=== PATIENT | male | born 1970 ===

== ENCOUNTER 2016-06-06 13:45 | Day surgery (SDC) | payer OTHER ==
[~2016-06-06 13:45] MED LIST: RINGERS SOLUTION,LACTATED 1,000 ML IV PRN; ceFAZolin SODIUM 2 GM in DEXTROSE 5 % IN WATER 50 ML IV PRN
--- OUTSIDE RECORDS SUMMARY | 2016-06-06 13:50 | XMS REPORT | Continuity of Care Document ---
:1970 Author Organization [facility] ([facility]) Address [place] [address] Phone [phone] Care Team Providers Name Role Phone Provider, No-Primary Care Primary Care Provider Unavailable Source Comments This disclosure is being made pursuant to the Care Everywhere program, applicable federal and state laws, and may not contain all informaitonavailable regarding this patient.[facility] ([facility]) Active Allergies and Adverse Reactions No Known Allergies Current Medications No known medications Active Problems Problem Noted Date Elevated blood pressure (not hypertension) 02/25/2016 Epidermoid cyst 02/25/2016 Social History Tobacco Use Types Packs/Day Years Used Date Never Smoker Smokeless Tobacco: Never Used Tobacco Cessation:Counseling Given: Yes Comments: Alcohol Use Drinks/Week oz/Week Comments No Last Filed Vital Signs Vital Sign Reading Time Taken Blood Pressure 142/90 02/24/2016 3:17 PM [employer] Pulse 86 02/24/2016 3:17 PM [employer] Temperature 37 C (98.6 F) 02/24/2016 3:17 PM [employer]ORY [employer] Respiratory Rate - - Height 1.727 m (5' 8") 02/24/2016 3:17 PM [employer]ORY EXP[employer] Weight 100.1 kg (220 lb 10.9 oz) 02/24/2016 3:17 PM FA[employer]ORY EXPERT Body Mass Index 33.56 02/24/2016 3:17 PM [employer]ORY EXPERT Oxygen Saturation - - Plan of Care Health Maintenance Due Date Last Done Comments Hepatitis B Vaccine (1 of 3 - Primary Series) 1970 Tdap Vaccine 07/15/1979 Lipid Disorder Screening 1986 MMR Vaccine 1986 Td Vaccine 1986 Influenza Vaccine: Seasonal (#1) 10/26/2015 Results from Last 3 Months Not on file
--- OUTSIDE RECORDS SUMMARY | 2016-06-06 13:50 | XMS REPORT | CCD ---
:1970 Author Name MELANIE PORTILLO Address [address] [place] [address] Care Team Providers Name Role Phone BEBETO OLSON, DANNIE Dial Attending Physician Unavailable DANNIE TATE MD Er Physician 1 Unavailable Allergies Allergy Code Allergy Type Reaction Status No Known Allergies 0 Drug allergy Active Active Medications Unknown or Not Available. Problems Unknown or Not Available. Procedures Procedure Code Procedure Type Date ABD 2 VWS DECUB OR UPRIGHT [id number] SNOMED CT 08/27/2015 Results ALCOHOL - Collect Date/Time: 08/27/2015 02:40 Test Name Code Test Result Test Units Test Ref Range ALCOHOL 3.00 mg/dL COMPREHENSIVE METABOLIC PANEL - Collect Date/Time: 08/27/2015 02:40 Test Name Code Test Result Test Units Test Ref Range GLUCOSE 118 mg/dL L=74 H=106 SODIUM 138 mmol/L L=136 H=145 POTASSIUM 4.1 mmol/L L=3.5 H=5.1 CHLORIDE 103 mmol/L L=98 H=107 CO2 27 mmol/L L=21 H=32 BUN 10.0 mg/dL L=7.0 H=18.0 CREATININE 0.7 mg/dL L=0.8 H=1.3 BUN/CREAT 14.3 L=7.6 H=21.2 CALCIUM 9.0 mg/dL L=8.6 H=10.1 TOTAL BILI 0.8 mg/dL L=0.2 H=1.0 TOTAL PROTEIN 7.6 g/dL L=6.4 H=8.2 ALBUMIN 3.8 g/dL L=3.4 H=5.0 A/G RATIO 1.0 ALKALINE PHOS 82 IU/L L=50 H=136 AST/SGOT 15 IU/L L=15 H=37 ALT/SGPT 30 IU/L L=12 H=78 ANION GAP 12.0 mmol/L L=7.0 H=16.0 AGE 45 YEARS GFR 128.48 ml/min LIPASE - Collect Date/Time: 08/27/2015 02:40 Test Name Code Test Result Test Units Test Ref Range LIPASE 66 U/L L=73 H=393 RAPID URINE DRUG SCREEN - Collect Date/Time: 08/27/2015 02:40 Test Name Code Test Result Test Units Test Ref Range CANNABINOIDS (THC) NEGATIVE N/A NORMAL:Negative OPIATES NEGATIVE N/A NORMAL:Negative AMPHETAMINES NEGATIVE N/A NORMAL:Negative COCAINE NEGATIVE N/A NORMAL:Negative TRICYCLIC ANTIDEPRES NEGATIVE N/A NORMAL:Negative BARBITURATES NEGATIVE N/A NORMAL:Negative METHADONE NEGATIVE N/A NORMAL:Negative BENZODIAZEPINES NEGATIVE N/A NORMAL:Negative PROPOXYPHENE NEGATIVE N/A NORMAL:Negative METHAMPHETAMINE NEGATIVE N/A NORMAL:Negative CBC W/DIFF - Collect Date/Time: 08/27/2015 02:40 Test Name Code Test Result Test Units Test Ref Range WBC 6690-2 15.4 K/uL L=3.2 H=10.0 RBC 789-8 5.67 M/uL L=4.30 H=5.70 HEMOGLOBIN 718-7 15.8 g/dL L=13.6 H=17.1 HEMATOCRIT 46.2 % L=40.0 H=52.0 MCV 81.5 fL L=81.0 H=101 MCH 27.9 PG L=26.0 H=38.0 MCHC 34.2 G/DL L=31.0 H=37.0 RDW-SD 39.7 FL L=37.0 H=54.0 RDW-CV 13.5 % L=11.0 H=16.0 PLATELETS 777-3 276 K/UL L=140 H=380 MPV 9.9 FL L=9.0 H=13.0 %GRAN 83.7 % L=0.0 H=75.0 %LYMPH 11.2 % L=0.0 H=50.0 %MONO 4.5 % L=0.0 H=14.0 %EOS 0.5 % L=0.0 H=6.0 %BASO 0.1 % L=0.0 H=1.0 #GRAN 12.88 K/UL L=1.80 H=7.80 #LYMPH 1.72 K/UL L=0.30 H=4.00 #MONO 0.69 K/UL L=0.00 H=0.70 #EOS 0.08 K/UL L=0.00 H=0.40 #BASO 0.02 K/UL L=0.00 H=0.10 SLIDE REVIEWED? NOT INDICATED N/A MANUAL DIFF NOT INDICATED N/A URINALYSIS - Collect Date/Time: 08/27/2015 02:40 Test Name Code Test Result Test Units Test Ref Range COLOR UR Yellow N/A NORMAL:YELLOW CLARITY UR Clear N/A NORMAL:CLEAR SP GRAV UR 1.020 N/A NORMAL:1.000-1.030 PH UR 7.0 N/A NORMAL:5.0-8.5 PROTEIN UR Negative N/A NORMAL:NEGATIVE GLUCOSE UR Negative N/A NORMAL:NEGATIVE KETONE UR Negative N/A NORMAL:NEGATIVE BILIRUBIN UR Negative N/A NORMAL:NEGATIVE BLOOD UR Negative N/A NORMAL:NEGATIVE LEUK UR Negative N/A NORMAL:NEGATIVE NITRITE UR Negative N/A NORMAL:NEGATIVE MICROSCOPIC NOT INDICAT N/A CULTURE? NO N/A HELICOBACTER PYLORI FECES - Collect Date/Time: 08/27/2015 14:52 Test Name Code Test Result Test Units Test Ref Range H. PYLORI AG, EIA, STOOL 95479-5 SEE NOTE N/A () Function Status Unknown or Not Available. History of Immunizations Immunization Code Date Influenza, seasonal, injectable, preservative free 140 02/17/2014 Influenza, seasonal, injectable 141 01/16/2013 Influenza, seasonal, injectable 141 12/22/2014 no vaccine administered 998 1970 Plan of Treatment Unknown or Not Available. Social History Smoking Status Code Start Date End Date Never smoker [id number] Vital Signs Unknown or Not Available. Function Status Unknown or Not Available. Goals Unknown or Not Available. ASSESSMENTS Unknown or Not Available. Health Concerns Section Unknown or Not Available.
[2016-06-06] MEDS ORDERED: RINGERS SOLUTION,LACTATED 1,000 ML IV ONE (14:15)
[2016-06-06] MEDS ORDERED: BUPIVACAINE HCL/EPINEPHRINE 50 ML VIAL IJ ONE ×2 (14:45)
[2016-06-06 16:30] VITALS: BP 140/85
--- NOTE | 2016-06-06 17:42 | OR ---
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 The cyst has recurred FINDINGS: Successful complete gross excision (pathology pending) NARRATIVE OF PROCEDURE: The patient was identified in the holding area, the surgical site was identified, and prior to the administration of anesthetic a multidisciplinary timeout was observed. Intravenous Ancef was administered preoperatively. With the patient in the right lateral position and after the administration of intravenous sedation the patient's back was prepped with Betadine solution and the area around the cyst isolated with 4 sterile towels. The remainder the patient was covered with a sterile disposable drape. The area around the cyst was infiltrated with 0.5% Marcaine with epinephrine. An elliptical skin incision was outlined with a marking pen so as to include the cyst, central pore, and previous scar. The skin incision was made sharply and dissection was carried in a normal-appearing subcutaneous tissue with electrocautery. Gradually the scar tissue and cyst were removed intact from underlying and surrounding subcutaneous tissue. The specimen was delivered intact and submitted to pathology. The wound was inspected for hemostasis which appeared complete. Additional 0.5% Marcaine with epinephrine was injected. Subcutaneous tissue was then approximated with 3 interrupted sutures of 0 Vicryl. The skin incision was approximated with a running subcuticular suture of 4-0 Vicryl. The operative site was washed and dried. A dressing of Exofin and Mepilex border was applied. The operative procedure was terminated at this point. All counts were correct. There was no measurable blood loss. The patient was transferred back to the ambulatory surgery area awake and in stable condition. The patient remained stable throughout a period of postoperative observation. He denied discomfort, his dressing remained dry. He was up without assistance and tolerated PO intake. He was discharged home with instructions not to engage in hazardous activity today but he may return to normal activity tomorrow and advance diet as tolerated. He is to keep the surgical site dry for 48 hours but then may shower and change the dressing daily or as needed. He has phone numbers to call prn signs of wound infection or hematoma. He was given a prescription for Percocet 5/325 mg #20 1-2 PO Q4-6hrs prn pain, and a return office appointment was made for 06/14/2016. Reviewed and electronically signed
== END 2016-06-06 13:46 | disposition home or self-care (01) ==
LOC: AMB 13:45
PROVIDERS: ATTEND Surgery
PROC: 0WBK0ZZ Excision of Upper Back, Open Approach (ICD-10-PCS; 2016-06-06)
PROC: 0JQ70ZZ Repair Back Subcutaneous Tissue and Fascia, Open Approach (ICD-10-PCS; principal; 2016-06-06 15:15)
DX: L72.0 Epidermal cyst (principal); Z68.30 Body mass index [BMI] 30.0-30.9, adult